=== PATIENT | female | born 1975 | race Caucasian/White ===

== ENCOUNTER 2018-03-27 06:10 | Observation (INO) | payer SELFPAY ==
[2018-03-27] MEDS ORDERED: ONDANSETRON 4 MG/2 ML VIAL ONE (06:23)
[2018-03-27] MEDS ORDERED: ONDANSETRON 4 MG/2 ML VIAL IVP ONE ×2 (06:26)
[2018-03-27] MEDS ORDERED: NS 1,000 ML IV ONE (06:26)
[2018-03-27] MEDS ORDERED: HYDROmorphONE/DILAUDID 2 MG/ML INJ IVP ONE (06:26)
[2018-03-27] MEDS ORDERED: fentaNYL 100 MCG/2 ML INJ IVP ONE ×2 (06:28→07:11)
--- NOTE | 2018-03-27 06:38 | EDPHY ---
H & P Stated Complaint: n/v x3 hours, abd pain, lower back pain Time Seen by Provider: 03/27/18 07:04 HPI/ROS: HPI CHIEF COMPLAINT: Abdominal pain, flank pain. HISTORY OF PRESENT ILLNESS: 42-year-old female, she is visiting from [facility] she is here getting a 2nd opinion about her liver disease at [facility]. She states prior to coming out here she had a stent placed in her right ureter for an obstructing 4 mm right ureteral stone. She woke up late this evening around 330 in the morning with worsening ongoing flank pain right-sided abdominal pain with associated nausea vomiting. Patient states he vomited multiple times. She denies any fever but does feel chills. Denies any chest pain shortness of breath. 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 Social History: Denies current use of alcohol. Denies drugs Family History: Noncontributory ROS REVIEW OF SYSTEMS: 10 Systems were reviewed and negative with the exception of the elements mentioned in the history of present illness. Exam Constitutional nontoxic appearing, triage nursing summary reviewed, vital signs reviewed, awake/alert. Eyes normal conjunctivae and sclera, EOMI, PERRLA. HENT normal inspection, atraumatic, moist mucus membranes, no epistaxis, neck supple/ no meningismus, no raccoon eyes. Respiratory clear to auscultation bilaterally, normal breath sounds, no respiratory distress, no wheezing. Cardiovascular rate normal, regular rhythm, no murmur, no edema, distal pulses normal. Gastrointestinal mild tender palpation in the abdomen, nondistended, do not appreciate a significant fluid wave, no rebound, no guarding, normal bowel sounds, no distension, no pulsatile mass. Genitourinary mild tender palpation right CVA Musculoskeletal no midline vertebral tenderness, full range of motion, no calf swelling, no tenderness of extremities, no meningismus, good pulses, neurovascularly intact. Skin pink, warm, & dry, no rash, skin atraumatic. Neurologic awake, alert and oriented x 3, AAOx3, moves all 4 extremities equally, motor intact, sensory intact, CN II-XII intact, normal cerebellar, normal vision, normal speech. Psychiatric normal mood/affect. Heme/Lymph/Immune no lymphadenopathy. Differential diagnosis includes but is not limited to and in no particular order : Bowel obstruction, appendicitis, gallbladder disease, diverticulitis, colitis , enteritis, perforated viscus, gastritis, GERD, esophagitis, urinary tract infection, pyelonephritis, kidney stones, SBP Medical Decision Making: Plan for this patient IV establishment IV fluid bolus , IV fentanyl for pain control 50 mcg IV Zofran nausea check urinalysis, blood work, CT scan abdomen pelvis without contrast for flank pain and stone and stent placement. Re-evaluate. Re-evaluation: CT scan abdomen pelvis without IV contrast called to me by Dr. Bruce, shows right-sided monitor pleural effusion, additionally no significant ascites on C T. There is a ureteral stent in the right ureter without evidence of stone. Patient's blood work reviewed. Additionally urinalysis reviewed. Leukocyte esterase positive. Will send for urine culture. Will give a g of Rocephin. Due to ongoing pain she will need to be admitted for flank pain. Due the patient's nausea vomiting and flank pain. And ureteral stent with evidence of infection on the urinalysis I have sent urine culture. Rocephin given. Will admit to the hospitalist service for flank pain, UTI, possible infected ureteral stent. 0713: Spoke with Dr. Vernon agrees to admit. Source: Patient - Personal History LMP (Females 10-55): Irregular Current Tetanus Diphtheria and Acellular Pertussis (TDAP): Yes - Medical/Surgical History Hx Asthma: No Hx Chronic Respiratory Disease: No Hx Diabetes: No Hx Cardiac Disease: No Hx Renal Disease: No Hx Cirrhosis: Yes Hx Alcoholism: No Hx HIV/AIDS: No Hx Splenectomy or Spleen Trauma: No Other PMH: cirrohsis - Social History Smoking Status: Never smoked Constitutional: Initial Vital Signs Temperature (C) 36.7 C 03/27/18 06:12 Heart Rate 76 03/27/18 06:12 Respiratory Rate 20 03/27/18 06:12 Blood Pressure 137/76 H 03/27/18 06:12 O2 Sat (%) 98 03/27/18 06:12 O2 Delivery Mode Room Air Allergies/Adverse Reactions: ibuprofen Allergy (Verified 03/27/18 06:11) Home Medications: Medication Instructions Recorded Amitriptyline HCl [Elavil 10 mg 10 mg PO HS 03/27/18 (*)] Ascorbic Acid [Vitamin C 500 mg 1,000 mg PO BID 03/27/18 (*)] Cholecalciferol Vit D3 [Vitamin D3 1,000 units PO DAILY 03/27/18 (*)] Cyanocobalamin (Vitamin B-12) 2,500 mcg PO DAILY 03/27/18 [Vitamin B12] Escitalopram Oxalate [Lexapro] 10 mg PO DAILY 03/27/18 Folic Acid [Folic Acid 1 MG (*)] 1 mg PO DAILY 03/27/18 Furosemide [Lasix 20 MG (*)] 20 mg PO DAILY 03/27/18 Gabapentin [Neurontin 300 MG (*)] 300 mg PO TID 03/27/18 Hydrocortisone 2.5% 1 jodi TP BID PRN 03/27/18 [Hydrocortisone 2.5% cream (*)] Midodrine HCl 10 mg PO TID 03/27/18 Multivitamins [Multivitamin (*)] 1 each PO DAILY 03/27/18 Ondansetron Odt [Zofran Odt 4 mg 4 mg PO Q8H PRN 03/27/18 (*)] Potassium Cl [Klor-Con 20 meq (*)] 20 meq PO DAILY 03/27/18 Thiamine HCl [Vitamin B-1] 100 mg PO DAILY 03/27/18 Zinc Sulfate 220 mg PO DAILY 03/27/18 traZODone [traZODONE 50MG (*)] 50 mg PO HS 03/27/18 Medical Decision Making - Data Points Laboratory Results: Laboratory Results 03/27/18 06:20 03/27/18 06:20 Medications Given: Amitriptyline HCl (Elavil) 10 mg PO [facility] Stop: 09/23/18 20:59 Last Admin: 03/27/18 22:20 Dose: 10 mg Gabapentin (Neurontin) 300 mg PO TID [facility] Stop: 09/23/18 15:59 Last Admin: 03/27/18 22:20 Dose: 300 mg Sodium Chloride (Ns) 1,000 mls @ 125 mls/hr IV CONT [facility] Stop: 09/23/18 07:44 Last Admin: 03/27/18 09:03 Dose: 1,000 mls Midodrine (Proamatine) 10 mg PO TID [facility] Stop: 09/23/18 15:59 Last Admin: 03/27/18 22:21 Dose: Not Given Morphine Sulfate (Morphine) 1 - 2 mg IVP Q2 PRN PRN Reason: Pain, Severe Unable to Take PO Stop: 04/06/18 07:40 Last Admin: 03/27/18 19:06 Dose: 2 mg Ondansetron HCl (Zofran) 4 mg IVP Q4HRS PRN PRN Reason: Nausea/Vomiting, Can't Take PO Stop: 09/23/18 09:11 Last Admin: 03/27/18 16:18 Dose: 4 mg Ondansetron HCl (Zofran Odt) 4 mg PO Q4HRS PRN PRN Reason: Nausea/Vomiting, Use 1st Stop: 09/23/18 09:11 Last Admin: 03/27/18 19:06 Dose: 4 mg Pantoprazole Sodium (Protonix) 40 mg IVP BID [facility] Stop: 09/23/18 13:59 Last Admin: 03/27/18 22:20 Dose: 40 mg Phenazopyridine HCl (Pyridium) 200 mg PO DAILY [facility] Stop: 09/23/18 09:59 Last Admin: 03/27/18 12:18 Dose: Not Given Discontinued Medications Fentanyl (Sublimaze) 50 mcg IVP EDNOW ONE Stop: 03/27/18 06:29 Last Admin: 03/27/18 06:30 Dose: 50 mcg Fentanyl (Sublimaze) 50 mcg IVP EDNOW ONE Stop: 03/27/18 07:12 Last Admin: 03/27/18 07:13 Dose: 50 mcg Hydromorphone HCl (Dilaudid) 0.5 mg IVP EDNOW ONE Stop: 03/27/18 06:27 Last Admin: 03/27/18 06:43 Dose: Not Given Sodium Chloride (Ns) 1,000 mls @ 0 mls/hr IV EDNOW ONE; Wide Open PRN Reason: Protocol Stop: 03/27/18 06:27 Last Admin: 03/27/18 06:28 Dose: 1,000 mls Ceftriaxone Sodium/Dextrose (Rocephin 1 Gm (Premix)) 50 mls @ 100 mls/hr IV EDNOW ONE PRN Reason: Protocol Stop: 03/27/18 07:32 Last Admin: 03/27/18 07:14 Dose: 50 mls Potassium Chloride (Potassium Cl 10 Meq (Premix)) 100 mls @ 100 mls/hr IV EDNOW ONE Stop: 03/27/18 08:07 Last Admin: 03/27/18 07:57 Dose: 100 mls Potassium Chloride (Potassium Cl 10 Meq (Premix)) 100 mls @ 100 mls/hr IV Q1H MICHAEL Stop: 03/27/18 12:59 Last Admin: 03/27/18 12:17 Dose: 100 mls Lorazepam (Ativan Injection) 0.5 mg IVP ONCE ONE Stop: 03/27/18 10:46 Last Admin: 03/27/18 10:50 Dose: 0.5 mg Morphine Sulfate (Morphine) 1 - 2 mg IVP Q4HRS PRN PRN Reason: Pain, Severe Unable to Take PO Stop: 04/06/18 07:40 Last Admin: 03/27/18 09:00 Dose: 2 mg Ondansetron HCl (Zofran) 4 mg IVP EDNOW ONE Stop: 03/27/18 06:27 Last Admin: 03/27/18 06:28 Dose: 4 mg Ondansetron HCl (Zofran) 4 mg IVP EDNOW ONE Stop: 03/27/18 06:27 Last Admin: 03/27/18 06:37 Dose: Not Given Ondansetron HCl (Zofran) 4 mg IVP Q4HRS PRN PRN Reason: Nausea/Vomiting, Can't Take PO Stop: 09/23/18 09:11 Last Admin: 03/27/18 09:19 Dose: 4 mg Potassium Chloride (Klor-Con) 10 - 40 meq PO ONCE ONE PRN Reason: Protocol Stop: 03/27/18 10:28 Last Admin: 03/27/18 10:47 Dose: Not Given Potassium Chloride (Klor-Con) 40 meq PO ONCE ONE PRN Reason: Protocol Stop: 03/27/18 22:01 Last Admin: 03/27/18 22:20 Dose: 40 meq Departure - Departure Disposition: [facility] Acute Clinical Impression: Flank pain, Pyelonephritis Abdominal pain Qualifiers: Abdominal location: unspecified location Qualified Code(s): R10.9 - Unspecified abdominal pain UTI (urinary tract infection) Qualifiers: Urinary tract infection type: acute cystitis Hematuria presence: with hematuria Qualified Code(s): N30.01 - Acute cystitis with hematuria Condition: Fair
[2018-03-27 06:48] LABS: PLATELET COUNT 197 10^3/uL (150-400)
[2018-03-27] MEDS ORDERED: POTASSIUM Cl (KCl) 100 ML IV ONE (07:08)
[2018-03-27] MEDS ORDERED: fentaNYL 100 MCG/2 ML INJ ONE (07:09)
[2018-03-27] MEDS ORDERED: PROTOCOL POTASSIUM 1 DOSE MISC PRN (07:36)
[2018-03-27] MEDS: NS 1,000 ML IV SCH (09:03)
[2018-03-27] MEDS ORDERED: ACETAMINOPHEN 325 MG TAB PO PRN (09:12)
[2018-03-27] MEDS ORDERED: ONDANSETRON 4 MG/2 ML VIAL IVP PRN (09:12)
--- NOTE | 2018-03-27 09:50 | GHP ---
DATE OF ADMISSION: 03/27/2018 CHIEF COMPLAINT: Nausea and vomiting with associated abdominal pain and lower back pain. HISTORY OF PRESENT ILLNESS: Roya Eddy is a 42-year-old female who is here visiting from the [place], [place] area. She came to the [place] area to get a 2nd opinion about her liver disease, liver transplant at [facility]. Prior to coming to [place], she had a stent placed this past Thursday on her right ureter for an obstructing 4 mm right ureteral stone. She woke up during the auto [employer] around 3:30 with worsening ongoing flank pain on the right side with associated nausea and vomiting. She denies any hematemesis. She denies any fever, but told me she has had ongoing chills. She also complains of increased frequency, urgency, and burning with urination. She has been treated for a urinary tract infection for approximately a month. She is unclear of what antibiotic she has been taking. During my interview she is complaining of ongoing nausea and pain. PAST MEDICAL HISTORY: 1. End-stage liver disease. This was diagnosed in October of 2016. Since then, she has not had any alcohol. 2. Cirrhosis. 3. Ascites. 4. Upper GI bleed. 5. GERD. 6. Recurrent right pleural effusions. 7. Pyelonephritis. 8. Chronic kidney disease stage 2. 9. Kidney stone. PAST SURGICAL HISTORY: 1. Right ureteral stent placement. 2. Appendectomy. FAMILY HISTORY: Noncontributory. SOCIAL HISTORY: She does not drink alcohol. She quit drinking the end of September in 2016. She does not work. She has been x15 years. She has 4 children. ALLERGIES: Advil. Please note, this is not a true allergy. She says it makes her throw up blood. MEDICATIONS: She is unable to provide a list for me. She said the list is at the hotel room and she cannot recall this list. REVIEW OF SYSTEMS: A 10-point review of system was performed and it was negative other than pertinent positives in the HPI and past medical history. PHYSICAL EXAM: GENERAL: The patient does not appear toxic, but appears to be in pain. VITAL SIGNS: Blood pressure is 115/60, heart rate of 63, respiratory rate of 20, O2 saturation on room air 93%, temperature is 36.7 Celsius. EYES: Pupils are equal and reactive. EOMs are intact. No conjunctival injection noted. ENT: Normal ears. Hearing intact. NECK: Trachea is midline. CARDIOVASCULAR: She is in a regular rate and rhythm. No murmurs, rubs, or gallops noted. CHEST: Lungs normal. Respiratory effort clear without wheezing , rales, or rhonchi. ABDOMEN: Soft. It is tender on both sides. She has no guarding. She has normal bowel sounds. No distention is noted. SKIN: No rashes. MUSCULOSKELETAL: She was able to get out of bed easily to the commode. PSYCHIATRIC: She is alert, oriented, and very anxious. Appears to have normal judgment, insight and normal memory. DATA: Reviewed. A CBC shows a white blood cell count of 8.9, hemoglobin of 10.5, hematocrit of 31.8, platelet count of 197. Chemistry: Sodium is 143, potassium 2.9, chloride of 109, CO2 of 24, BUN 18, creatinine 0.9, glucose 110. Protein is 5.4, albumin 3.1. screen is negative. AST is 34, ALT is 32, alkaline phosphatase is 84. Urinalysis shows trace ketones, 3+ blood, 3 + leukocyte esterase, 50-182 RBCs, 25-50 WBCs. Urine culture is pending. CT of the abdomen and pelvis shows a moderate right pleural effusion, prior TIPS. She has a right ureteral stent with mild residual hydronephrosis. ASSESSMENT/PLAN: 1. Flank pain, pyelonephritis, but cannot rule out that she has an infected stent. Will follow up with urine cultures. Will place her on ceftriaxone. I spoke with Urology to have them further evaluate the patient's imaging and give guidance as far as input. Also, the patient said she has had a urinary tract infection for a month. Have asked the nursing staff to get her information from the [place], [place] area so we can see what she has been treated with and what her sensitivities are. Will also place her on Pyridium. 2. Nausea and vomiting. Will keep her NPO for now. Continue IV fluids and antiemetics. 3. End-stage liver disease with a history of cirrhosis. She is here for further evaluation with [facility]. Further follow up with them. Will resume her home medications. 4. Hypokalemia. Have placed her on the potassium protocol. 5. Anemia. Unclear of her baseline. Will review her previous records. 6. Right pleural effusion. She is oxygenating well. Secondary from end stage liver disease. Her last thoracentesis was on 03/22. 7. Deep venous thrombosis prophylaxis, low risk. 8. Length of stay. She will likely require less than a 2-midnight stay, which will make her observation status. /[id number]/MODL and [id number]/MODL [facility]
[2018-03-27] MEDS ORDERED: POTASSIUM CL 10 MEQ TAB PO ONE (10:27)
[2018-03-27] MEDS ORDERED: LORazepam 2 MG/ML INJ IVP ONE (10:45)
[2018-03-27] MEDS: POTASSIUM Cl (KCl) 100 ML IV SCH ×2 (11:17→12:17)
--- NOTE | 2018-03-27 11:41 | GCON ---
DATE OF CONSULTATION: 03/27/2018 CHIEF COMPLAINT: Nausea, vomiting, and abdominal pain. Possible gastrointestinal bleed, possible st ent discomfort. HISTORY OF PRESENT ILLNESS: The patient is a 42-year-old female, visiting from [place], [place]. She came to [place] to receive a 2nd opinion about her liver disease in an interest to obtain liver trans plant. She does have a history of severe alcoholism in the past. She had a stent placed on in [place], [place] for a 4 mm obstructing right ureteral stone. She woke up this morning with chance re pain, nausea, and vomiting. She does have a history of UTIs and her urine looks like it is infect ed. Her CT scan shows that the stent is in good position. There is mild pelvic caliectasis on the C T, and she is not aware of what bug she is growing or what antibiotic she was taking. I have found h er to be difficult to obtain a history from, a difficult examination, and she refuses to answer quest ions during my interview. PAST MEDICAL HISTORY: End-stage liver disease, cirrhosis with ascites, history of upper GI bleed. PAST SURGICAL HISTORY: Recent right stent placement, and an appendectomy. SOCIAL HISTORY: She states she does not drink alcohol. She does not work. She has 4 children. She is for 15 years. ALLERGIES: Advil. MEDICATIONS: We were unable to obtain this. REVIEW OF SYSTEMS: 10-point review of systems is positive for abdominal pain, severe anxiety and milo bility to reorient the patient for obtaining a history. PHYSICAL EXAMINATION: GENERAL: She does not appear toxic, she does appear to be in pain. VITAL SIG NS: Blood pressures are stable. Heart rate is 63, respiratory rate is 20, oxygen saturation 93% on room air. She is afebrile. HEENT: Normocephalic, atraumatic. NECK: Trachea is midline. CARDIOVA SCULAR: Regular rate and rhythm. CHEST: No retractions or pursed lip breathing. No cyanosis. ABD OMEN: Soft, nontender, nondistended. SKIN: No rashes or lesions. MUSCULOSKELETAL: She is able to get out of bed for the hospitalist service. I have not seen her do this, but [facility] PSYCHIATRIC: Extremely anxious, difficult to reorient. LABS: Her white count is 9, H and H is 10.5 and 32, creatinine is 0.9. I reviewed the CT scan with the radiologist, and she has a right ureteral stent with some mild pelvic caliectasis. ASSESSMENT AND PLAN: Flank pain due to pyelonephritis. This is likely due to a urinary tract infect ion, transferring up to the kidney as pyelonephritis through the stent. We will continue urine cultu res. She is on ceftriaxone. I agree with Pyridium and I recommend Ativan. I do not recommend surge ry at this point. As she still has a stone in place with an active pyelonephritis, it is not safe to treat with stent exchange. However, we could consider a nephrostomy tube with Interventional Radiol ogy, with bedside removal of the infected stent. This would be the safest treatment plan for her inf ected kidney, ureter and bladder. We will continue antibiotics, and I will reassess tomorrow. /[id number]/MODL
[2018-03-27] MEDS: ONDANSETRON DISINTEGRATING 4 MG TAB PO PRN ×2 (12:05→19:06)
[2018-03-27] MEDS: PHENAZOPYRIDINE HCL 200 MG TAB PO SCH (12:18)
[2018-03-27] MEDS: PANTOPRAZOLE SODIUM 40 MG VIAL IVP SCH ×2 (14:13→22:20)
[2018-03-27] MEDS: ONDANSETRON 4 MG/2 ML VIAL IVP PRN (16:18)
[2018-03-27] MEDS: MIDODRINE HCL 5 MG TAB PO SCH ×3 (16:18→22:21)
[2018-03-27] MEDS: GABAPENTIN 300 MG CAP PO SCH ×2 (16:18→22:20)
[2018-03-27] MEDS ORDERED: POTASSIUM CL 20 MEQ TAB PO ONE (22:00)
[2018-03-27] MEDS: AMITRIPTYLINE HCL 10 MG TAB PO SCH (22:20)
[2018-03-27] MEDS: LORazepam 2 MG/ML INJ IVP PRN (23:45)
[2018-03-28] MEDS: NS 1,000 ML IV SCH ×2 (03:00→11:29)
[2018-03-28 08:11] LABS: PLATELET COUNT 152 10^3/uL (150-400)
[2018-03-28] MEDS: CYANO/VITAMIN B12 1000 MCG TAB PO SCH (08:39)
[2018-03-28] MEDS: PHENAZOPYRIDINE HCL 200 MG TAB PO SCH (08:40)
[2018-03-28] MEDS: GABAPENTIN 300 MG CAP PO SCH ×3 (08:41→20:58)
[2018-03-28] MEDS: FUROSEMIDE 20 MG TAB PO SCH (08:41)
[2018-03-28] MEDS: FOLIC ACID 1 MG TAB PO SCH (08:41)
[2018-03-28] MEDS: ESCITALOPRAM OXALATE 10 MG TAB PO SCH (08:41)
[2018-03-28] MEDS: THIAMINE HCL 100 MG TAB PO SCH (08:41)
[2018-03-28] MEDS: PANTOPRAZOLE SODIUM 40 MG VIAL IVP SCH ×2 (08:42→20:57)
[2018-03-28] MEDS: MIDODRINE HCL 5 MG TAB PO SCH ×3 (08:50→21:03)
[2018-03-28] MEDS ORDERED: POTASSIUM CL 10 MEQ TAB PO ONE ×2 (09:07→21:00)
[2018-03-28] MEDS: POTASSIUM CL 20 MEQ TAB PO SCH (09:48)
[2018-03-28] MEDS: ONDANSETRON DISINTEGRATING 4 MG TAB PO PRN ×2 (11:30→16:11)
--- NOTE | 2018-03-28 16:58 | ASMTCMCOM ---
CM Note CM Note Notes: Pt admitted for N/V, abd and lower back pain, UTI and pyelonephritis r/t infected ureter stent; pt also has right pleural effusion secondary to ESLD. Pt is visiting from [facility] w/her , Brennan, to get a 2nd opinion about her ESLD and hopes to obtain a liver transplant at [facility]; pt has a history of ETOH abuse but reports being sober since Spring 2016 when she was diagnosed. Pt recently had a stent placed in her right ureter due to a stone on 03/24 in [place]. Pt states she has been treated for a UTI for about a month but was unable to tell providers what antibiotic she has been taking. Pt hasn't been able to provide a medication list to providers yet. Urology consulted; Dr Rosas does not recommend surgery at this time; considering a nephrostomy tube w/IR w/bedside removal of infected stent. Plan to continue antibiotics and Dr Rosas to reassess tomorrow. CM to follow. Date Signed: 03/28/2018 04:58 PM Electronically Signed By:Nesha Mas RN
--- NOTE | 2018-03-28 17:48 | HOSPPROG ---
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 Suspect this is not related to infection , will monitor cultures overnight and continue abx for now. This is complicated by patients report of being on abx for 1 month for recurrent UTI recently # ureteral stent: placed for obstructing ureteral stone, discussed with urology that stent exchange now could cause scarring and other issues, as above, will continue to monitor # n/v/abd pain: unlcear etiology, improved but requiring ongoing medications, query large component of anxiety and perhaps opiate tolerance--will try to obtain records from out of state and PDMP # ESLD: 2/2 EToh, here for eval for possible liver transplantation, she is s/p TIPS # observation status Patient new to my care. REcords reviewed including H&P by [place] and consult note by Ralph. Plan reviewed with Dr. Rosas. Subjective: no significant overnight events, patient states she is very somnolent and continues ot have n/v/abd pain Objective: Vital Signs Temp Pulse Resp BP Pulse Ox 37.6 C 70 18 127/75 H 90 L 03/28/18 15:35 03/28/18 15:35 03/28/18 15:35 03/28/18 15:35 03/28/18 15:35 Laboratory Results 03/28/18 07:56 03/28/18 07:56 03/27/18 03/28/18 03/29/18 05:59 05:59 05:59 Intake Total 1999 1375 Balance 1999 1375 awake alert somnolent anicteric op clear rrr no mrg cta b soft nt nd no cce warm dry well perfused ICD10 Worksheet Patient Problems: Problems Problem Status Onset Abdominal pain Acute Flank pain Acute Pyelonephritis Acute UTI (urinary tract infection) Acute
[2018-03-28] MEDS: ONDANSETRON 4 MG/2 ML VIAL IVP PRN (20:57)
[2018-03-28] MEDS: AMITRIPTYLINE HCL 10 MG TAB PO SCH (20:58)
[2018-03-29] MEDS: ONDANSETRON 4 MG/2 ML VIAL IVP PRN ×4 (03:25→17:29)
[2018-03-29] MEDS: LORazepam 2 MG/ML INJ IVP PRN (04:52)
[2018-03-29] MEDS: PANTOPRAZOLE SODIUM 40 MG VIAL IVP SCH ×2 (09:09→20:30)
[2018-03-29] MEDS: FOLIC ACID 1 MG TAB PO SCH (09:12)
[2018-03-29] MEDS: THIAMINE HCL 100 MG TAB PO SCH (09:12)
[2018-03-29] MEDS: POTASSIUM CL 20 MEQ TAB PO SCH (09:12)
[2018-03-29] MEDS: FUROSEMIDE 20 MG TAB PO SCH (09:12)
[2018-03-29] MEDS: ESCITALOPRAM OXALATE 10 MG TAB PO SCH (09:12)
[2018-03-29] MEDS: PHENAZOPYRIDINE HCL 200 MG TAB PO SCH (09:12)
[2018-03-29] MEDS: GABAPENTIN 300 MG CAP PO SCH ×3 (09:12→20:31)
[2018-03-29] MEDS: CYANO/VITAMIN B12 1000 MCG TAB PO SCH (09:13)
[2018-03-29] MEDS: MIDODRINE HCL 5 MG TAB PO SCH ×3 (09:18→21:08)
[2018-03-29] MEDS ORDERED: KETAMINE IVP ONE (11:22)
--- NOTE | 2018-03-29 11:43 | SOAPPROG ---
SOAP Progress Note Assessment/Plan: Assessment: Pain control an issue - team is suspicious of drug seeking - Reasonable to remove stent - I reviewed the images w rads again and no stone noted along ureter per rads read Plan: Bedside stent removal 03/29/18 11:40 Subjective: Difficult to examine, positive physical exam, including retrobulbar micturalgia , does not answer questions, just states "im in pain" Objective: Vital Signs Temp Pulse Resp BP Pulse Ox 36.9 C 71 16 137/79 H 93 03/29/18 08:40 03/29/18 08:40 03/29/18 08:40 03/29/18 08:40 03/29/18 08:40 Laboratory Results 03/28/18 07:56 03/29/18 04:40 03/28/18 03/29/18 03/30/18 05:59 05:59 05:59 Intake Total 1999 9090 Balance 1999 0959 Physical Exam - Physical Exam EENT: PERRL/EOMI Neck: other (positive for pain) Respiratory: other (positive for pain ) Cardiac/Chest: other (positive for pain ) Abdomen: other (positive for pain ) Pelvic Exam: deferred Rectal: deferred Back: Other (positive for pain ) Skin: other (positive for pain ) Lymphatic: other (positive for pain ) Extremities: other (positive for pain ) ICD10 Worksheet Patient Problems: Problems Problem Status Onset Abdominal pain Acute Flank pain Acute Pyelonephritis Acute UTI (urinary tract infection) Acute
[2018-03-29] MEDS: NS 1,000 ML IV SCH ×2 (13:18→21:43)
--- NOTE | 2018-03-29 15:07 | HOSPPROG ---
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 Patient states she is unable to eat due to pain/n and remains NPO at this time. Will need to advance diet as we are able. # pyuria: mostly blood in the urine with some wbc and leuk esterase, no elevation in wbc or sirs criteria, initial urine cultures showing yeast and normal urogenital roxanne at low counts. Suspect this is not related to infection. This is complicated by patients report of being on abx for 1 month for recurrent UTI recently. Will dc abx after stent removal as next # ureteral stent: placed for obstructing ureteral stone, plan to remove stent today for concerns it is the etiology of her abd pain as next, if this does not improve pain may need to discuss nephrostomy tube with IR in discussion with urology today # ESLD: 2/2 EToh, here for eval for possible liver transplantation, she is s/p TIPS # inpatient status Plan reviewed with Dr. Rosas. Subjective: no significant overnight events, patient alternately somnolent or yelling in pain Objective: Vital Signs Temp Pulse Resp BP Pulse Ox 36.8 C 64 16 133/78 H 92 03/29/18 13:27 03/29/18 13:27 03/29/18 13:27 03/29/18 13:27 03/29/18 13:27 Laboratory Results 03/28/18 07:56 03/29/18 04:40 03/28/18 03/29/18 03/30/18 05:59 05:59 05:59 Intake Total 1999 2775 Output Total 700 Balance 1999 2775 -700 somnolent anicteric op clear rrr no mrg cta b soft nt nd no cce warm dry well perfused ICD10 Worksheet Patient Problems: Problems Problem Status Onset Abdominal pain Acute Flank pain Acute Pyelonephritis Acute UTI (urinary tract infection) Acute
[2018-03-29] MEDS: oxyCODONE IR 5 MG TAB PO PRN ×2 (15:29→20:36)
[2018-03-29] MEDS: AMITRIPTYLINE HCL 10 MG TAB PO SCH (20:32)
[2018-03-29] MEDS ORDERED: POTASSIUM CL 10 MEQ TAB PO ONE (21:00)
[2018-03-30] MEDS: oxyCODONE IR 5 MG TAB PO PRN ×3 (02:43→13:12)
[2018-03-30 04:39] LABS: PLATELET COUNT 159 10^3/uL (150-400)
[2018-03-30] MEDS: NS 1,000 ML IV SCH (06:13)
[2018-03-30] MEDS: CYANO/VITAMIN B12 1000 MCG TAB PO SCH (09:25)
[2018-03-30] MEDS: ESCITALOPRAM OXALATE 10 MG TAB PO SCH (09:25)
[2018-03-30] MEDS: PANTOPRAZOLE SODIUM 40 MG VIAL IVP SCH (09:25)
[2018-03-30] MEDS: FUROSEMIDE 20 MG TAB PO SCH (09:26)
[2018-03-30] MEDS: THIAMINE HCL 100 MG TAB PO SCH (09:26)
[2018-03-30] MEDS: GABAPENTIN 300 MG CAP PO SCH ×2 (09:26→16:00)
[2018-03-30] MEDS: FOLIC ACID 1 MG TAB PO SCH (09:26)
[2018-03-30] MEDS: POTASSIUM CL 20 MEQ TAB PO SCH (09:26)
[2018-03-30] MEDS: MIDODRINE HCL 5 MG TAB PO SCH ×2 (09:38→16:01)
[2018-03-30 12:42] VITALS: BP 115/67
[2018-03-30] MEDS: ONDANSETRON DISINTEGRATING 4 MG TAB PO PRN (13:12)
[2018-03-30] MEDS ORDERED: POTASSIUM CL 10 MEQ TAB PO ONE (13:45)
--- NOTE | 2018-03-30 14:00 | HOSPPROG ---
Hospitalist Progress Note Assessment/Plan: 42 yo F w cirrhosis here w pain following recent ureteral stent stone has passed nit infected home today > 30 minutes Subjective: afebrile. urine w low colony count Objective: Vital Signs Temp Pulse Resp BP Pulse Ox 36.7 C 73 16 115/67 92 03/30/18 12:41 03/30/18 12:41 03/30/18 12:41 03/30/18 12:41 03/30/18 12:41 Laboratory Results 03/30/18 03:58 03/30/18 03:58 03/29/18 03/30/18 03/31/18 05:59 05:59 05:59 Intake Total 2775 3460 Output Total 2300 900 Balance 2775 1160 -900 - Physical Exam Constitutional: no apparent distress, appears nourished Eyes: PERRL, anicteric sclera Ears, Nose, Mouth, Throat: moist mucous membranes, hearing normal Cardiovascular: regular rate and rhythym, no murmur, rub, or gallop Respiratory: no respiratory distress, no rales or rhonchi Gastrointestinal: normoactive bowel sounds, soft, non-tender abdomen Genitourinary: no bladder fullness, No soto in urethra Skin: warm, normal color Musculoskeletal: full muscle strength, no muscle tenderness Neurologic: AAOx3 ICD10 Worksheet Patient Problems: Problems Problem Status Onset Abdominal pain Acute Flank pain Acute Pyelonephritis Acute UTI (urinary tract infection) Acute
--- NOTE | 2018-03-30 14:33 | GDS ---
DISCHARGE DIAGNOSES: 1. Cirrhosis. 2. Urodynia. 3. Ureteral stent secondary to stone, done at an outside hospital. Please see admission history and physical by Lelo Eric. The patient presented with abdominal p ain on the . She was traveling to [place] for a 2nd opinion about her liver disease. She had re cently had a 4 mm stone with a stent placed in [place], where she lives. She had worsening pain. She had pyuria and had received some antibiotics, although her urine cultures ultimately grew nothing out . Her CT scan revealed her stone had passed. Urology saw her and declined to remove the stent. The re was no evidence of hydronephrosis and her renal function was normal. The patient is discharged ho pr with limited prescriptions for oxycodone and Zofran. /[id number]/MODL
--- NOTE | 2018-03-30 14:46 | ASMTLACE ---
KULDIP Length of stay for Answers: 3 days current admission Acuity / Level of Answers: No Care: Did the patient have an inpatient admission? Comorbidities - select Answers: Moderate or severe liver all that apply or renal disease Other Notes: ESRD, Cirrhosis, ascite s, GERD, recurrent righ tpleural effusions, pyelonephrit is, CKD stage 2, kidney stones # of Emergency department Answers: 1-2 visits in the last 6 months Social determinants Answers: History of substance abuse (ETOH, street drugs, prescription drugs, etc.) Score: 12 Date Signed: 03/30/2018 02:45 PM Electronically Signed By:Charlene Rhodes
== END 2018-03-30 17:04 | disposition home or self-care (01) ==
LOC: F1N 08:27
PROVIDERS: ADMIT Family Medicine; ATTEND Internal Medicine
DX: R10.31 Right lower quadrant pain (principal); M54.5 Low back pain; R11.2 Nausea with vomiting, unspecified; Z87.442 Personal history of urinary calculi; K70.31 Alcoholic cirrhosis of liver with ascites; N18.2 Chronic kidney disease, stage 2 (mild)
CPT/HCPCS: G0378; J0696; J2060; J2270; J2405; J3010; J3480